=== PATIENT | female | born 1990 | race Caucasian/White ===

== ENCOUNTER 2020-09-16 08:25 | Emergency (ER) | payer BC, SELFPAY ==
[2020-09-16 08:49] LABS: Urine Blood Negative (Negative); Urine Glucose Negative (Negative); Urine Protein Negative (Negative); Urine Specific Gravity 1.025 (1.005-1.030); Urine pH 7.5 (5.0-7.0)
[2020-09-16 09:12] LABS: Urine Amorphous Sediment 2+ /HPF (NONE SEEN); Urine Bacteria <20 /HPF (<20); Urine RBC <5 /HPF (NONE SEEN)
[2020-09-16 09:13] LABS: Urine Specific Gravity/Preg 1.025 (1.005-1.030)
[2020-09-16 09:23] LABS: Absolute Lymphocytes (CBC) 1.6 K/uL (0.7-4.9); Basophils % 0.7 % (0-1.3); Hematocrit 43.2 % (36.0-45.0); Lymphocytes % 20.9 % (15.3-44.8); MPV 7.8 fL (7.6-11.3)
[2020-09-16] MEDS ORDERED: MORPHINE 4 MG/ML SYR ONE (09:33)
[2020-09-16] MEDS ORDERED: ONDANSETRON 4 MG/2 ML VIAL ONE (09:33)
[2020-09-16 09:35] LABS: Albumin 3.9 g/dL (3.4-5.0); Bilirubin Direct 0.1 mg/dL (0-0.2); Bilirubin Total 0.4 mg/dL (0.2-1.0); Potassium 3.7 mmol/L (3.5-5.1); Protein, Total 7.7 g/dL (6.4-8.2)
--- NOTE | 2020-09-16 09:55 | RAD REPORT ---
EXAM DESCRIPTION: CTAbdomen Pelvis W Contrast - 09/16/2020 9:48 am CLINICAL HISTORY: Abdominal pain. periumbilical and RLQ abd pain COMPARISON: No comparisons TECHNIQUE: Biphasic CT imaging of the abdomen and pelvis was performed with 100 ml non-ionic IV cont rast. All CT scans are performed using dose optimization technique as appropriate and may include automated exposure control or mA/KV adjustment according to patient size. FINDINGS: The lung bases are clear.Small hiatal hernia. The liver, spleen, pancreas, adrenal glands and kidneys are within normal limits. No bowel obstruction, free air, free fluid or abscess. The appendix is normal. No evidence of signi ficant lymphadenopathy. No suspicious bony findings. IMPRESSION: No acute intra-abdominal or pelvic finding.
--- NOTE | 2020-09-16 10:17 | EDPHYS ---
Physician Documentation [facility] Name: Lissett Gimenez Age: 30 yrs Sex: Female : 1990 Arrival Date: 09/16/2020 Time: 08:27 Bed 8 Private MD: ED Physician Humble Carpio HPI: 09/16 09:12 This 30 yrs old Female presents to ER via Ambulatory with complaints of rn Abdominal Pain. 09:12 The patient presents with abdominal pain in the periumbilical area. right lower rn quadrant. Onset: The symptoms/episode began/occurred last night. The symptoms do not radiate. Associated signs and symptoms: Pertinent positives: nausea, Pertinent negatives: blood in stools, constipation, diarrhea, dysuria, fever. The symptoms are described as achy, crampy. Modifying factors: The symptoms are alleviated by nothing, the symptoms are aggravated by touching the area. Severity of pain: At its worst the pain was moderate in the emergency department the pain is unchanged. The patient has not experienced similar symptoms in the past. The patient has not recently seen a physician. No improvement with Gasx.. 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 - Social history:: Smoking status: Reported history of juuling and/or vaping. - Family history:: not pertinent. - Hospitalizations: : No recent hospitalization is reported. ROS: 09:12 Constitutional: Negative for fever, chills, and weight loss, Eyes: Negative for injury, rn pain, redness, and discharge, Neck: Negative for injury, pain, and swelling, Cardiovascular: Negative for chest pain, palpitations, and edema, Respiratory: Negative for shortness of breath, cough, wheezing, and pleuritic chest pain, Abdomen/GI: Negative for vomiting, diarrhea, and constipation, Back: Negative for injury and pain, : Negative for injury, bleeding, discharge, and swelling, MS/Extremity: Negative for injury and deformity, Skin: Negative for injury, rash, and discoloration, Neuro: Negative for headache, weakness, numbness, tingling, and seizure. Exam: 09:12 Constitutional: This is a well developed, well nourished patient who is awake, alert, rn and in no acute distress. Ambulatory to room without difficulty or assistance. Head/Face: Normocephalic, atraumatic. Eyes: Periorbital areas with no swelling, redness, or edema. Cardiovascular: Regular rate and rhythm. No pulse deficits. Respiratory: No increased work of breathing, no retractions or nasal flaring. Abdomen/GI: soft, + mild periumbilical and RLQ tenderness, no masses Skin: Warm, dry MS/ Extremity: Pulses equal, no cyanosis. Neuro: Awake and alert, GCS 15 Vital Signs: 08:28 BP 141 / 89; Pulse 89; Resp 17; Temp 97.9; Pulse Ox 98% ; Weight 113.4 kg; Height 5 ft. rb3 6 in. (167.64 cm); Pain 9/10; 09:25 BP 134 / 85; Pulse 81; Resp 17; Pulse Ox 98% ; rb3 10:24 BP 121 / 78; Pulse 72; Resp 16; Pulse Ox 98% ; rb3 08:28 Body Mass Index 40.35 (113.40 kg, 167.64 cm) rb3 MDM: 08:30 Patient medically screened. rn 10:15 Differential diagnosis: appendicitis, diverticulitis, Endometriosis, non-specific abd rn pain, Ureterolithiasis, urinary tract infection, ovarian cyst. Data reviewed: vital signs, nurses notes, lab test result(s), radiologic studies, CT scan, and as a result, I will discharge patient. Counseling: I had a detailed discussion with the patient and/or guardian regarding: the historical points, exam findings, and any diagnostic results supporting the discharge/admit diagnosis, lab results, radiology results, the need for outpatient follow up, to return to the emergency department if symptoms worsen or persist or if there are any questions or concerns that arise at home. Response to treatment: the patient's symptoms have mildly improved after treatment, and as a result, I will discharge patient. Special discussion: I discussed with the patient/guardian in detail that at this point there is no indication for admission to the hospital. It is understood, however, that if the symptoms persist or worsen the patient needs to return immediately for re-evaluation. ED course: No acute findings in blood/urine/ct abdomen, neg preg, will dc home with rehydration, laxative, gasx, and return precautions.. 09/16 08:36 Order name: Basic Metabolic Panel rn 09/16 08:36 Order name: CBC with Diff rn 09/16 08:36 Order name: Hepatic Function; Complete Time: 10:09 rn 09/16 08:36 Order name: Lipase; Complete Time: 10:09 rn 09/16 08:36 Order name: Urine Microscopic Only; Complete Time: 10: rn 09/16 08:37 Order name: Basic Metabolic Panel; Complete Time: 10:09 EDNY 09/16 08:36 Order name: IV Saline Lock; Complete Time: 09:42 rn 09/16 08:36 Order name: Labs collected and sent; Complete Time: 09:42 rn 09/16 08:36 Order name: CT Abd/Pelvis - IV Contrast Only; Complete Time: 10: rn 09/16 08:37 Order name: CBC with Automated Diff; Complete Time: 10: EDNY 09/16 08:49 Order name: Urine Dipstick-Ancillary; Complete Time: 10: EDNY 09/16 08:54 Order name: Urine --Ancillary (enter results); Complete Time: 10:09 09/16 08:36 Order name: Urine Test (obtain specimen); Complete Time: 09:42 rn 09/16 08:36 Order name: Urine Dipstick-Ancillary (obtain specimen); Complete Time: 09:42 rn Administered Medications: 09:20 Drug: morphine 4 mg Route: IVP; Site: right antecubital; rb3 09:35 Follow up: Response: No adverse reaction; Pain is decreased rb3 09:20 Drug: Zofran (Ondansetron) 4 mg Route: IVP; Site: right antecubital; rb3 09:35 Follow up: Response: No adverse reaction rb3 Disposition: 09/16/20 10:16 Discharged to Home. Impression: Lower abdominal pain, unspecified. - Condition is Stable. - Discharge Instructions: Abdominal Pain, Adult, Pain Without a Known Cause. - Medication Reconciliation Form, Thank You Letter, Antibiotic Education, Prescription Opioid Use, Work release form form. - Follow up: Private Physician; When: As needed; Reason: Recheck today's complaints, Re-evaluation by your physician. - Problem is new. - Symptoms have improved. Signatures: Dispatcher [employer] EDMS Humble Carpio MD MD rn Barber, Rebecca, RN RN rb3 Corrections: (The following items were deleted from the chart) 10:46 10:16 09/16/2020 10:16 Discharged to Home. Impression: Lower abdominal pain, rb3 unspecified. Condition is Stable. Forms are Medication Reconciliation Form, Thank You Letter, Antibiotic Education, Prescription Opioid Use. Follow up: Private Physician; When: As needed; Reason: Recheck today's complaints, Re-evaluation by your physician. Problem is new. Symptoms have improved. rn
--- NOTE | 2020-09-16 10:17 | ER ---
Nurse's Notes [facility] Name: Lissett Gimenez Age: 30 yrs Sex: Female : 1990 Arrival Date: 09/16/2020 Time: 08:27 Bed 8 Private MD: Diagnosis: Lower abdominal pain, unspecified Presentation: 09/16 08:28 Chief complaint: Patient states: RLQ pain that radiates across the lower abdomen, pain rb3 started last night. 08:28 Coronavirus screen: At this time, the client does not indicate any symptoms associated rb3 with coronavirus-19. Ebola Screen: Patient denies travel to an Ebola-affected area in the 21 days before illness onset. Initial Sepsis Screen: Does the patient meet any 2 criteria? No. Patient's initial sepsis screen is negative. Does the patient have a suspected source of infection? No. Patient's initial sepsis screen is negative. Risk Assessment: Do you want to hurt yourself or someone else? Patient reports no desire to harm self or others. Onset of symptoms was September 15, 2020. 08:28 Method Of Arrival: Ambulatory rb3 08:28 Acuity: MARIFER 3 rb3 Triage Assessment: 08:28 General: Appears uncomfortable, Behavior is calm, cooperative, Denies fever. Pain: rb3 Complains of pain in right lower quadrant Pain radiates to lower abdomen Pain currently is 9 out of 10 on a pain scale. Neuro: Level of Consciousness is awake, alert, obeys commands, Oriented to person, place, time, situation. Cardiovascular: Capillary refill < 3 seconds Patient's skin is warm and dry. Respiratory: Airway is patent Respiratory effort is even, unlabored, Respiratory pattern is regular, symmetrical. GI: Reports nausea. : No signs and/or symptoms were reported regarding the genitourinary system. 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 - Social history:: Smoking status: Reported history of juuling and/or vaping. - Family history:: not pertinent. - Hospitalizations: : No recent hospitalization is reported. Screenin:28 Abuse screen: Denies threats or abuse. Nutritional screening: No deficits noted. rb3 Tuberculosis screening: No symptoms or risk factors identified. Fall Risk None identified. Assessment: 08:28 General: See triage assessment. rb3 09:30 Reassessment: Patient appears in no apparent distress at this time. Patient and/or rb3 family updated on plan of care and expected duration. Pain level reassessed. Patient is alert, oriented x 3, equal unlabored respirations, skin warm/dry/pink. 10:30 Reassessment: Patient appears in no apparent distress at this time. Patient states rb3 feeling better. Vital Signs: 08:28 BP 141 / 89; Pulse 89; Resp 17; Temp 97.9; Pulse Ox 98% ; Weight 113.4 kg; Height 5 ft. rb3 6 in. (167.64 cm); Pain 9/10; 09:25 BP 134 / 85; Pulse 81; Resp 17; Pulse Ox 98% ; rb3 10:24 BP 121 / 78; Pulse 72; Resp 16; Pulse Ox 98% ; rb3 08:28 Body Mass Index 40.35 (113.40 kg, 167.64 cm) rb3 ED Course: 08:27 Patient arrived in ED. as 08:28 Arm band placed on. rb3 08:28 Patient has correct armband on for positive identification. Bed in low position. Call rb3 light in reach. Side rails up X 1. Pulse ox on. NIBP on. Warm blanket given. 08:30 Humble Carpio MD is Attending Physician. rn 08:38 Bonnie Villarreal, GABY is Primary Nurse. rb3 08:40 Triage completed. rb3 09:47 CT Abd/Pelvis - IV Contrast Only In Process Unspecified. EDMS 10:45 No provider procedures requiring assistance completed. IV discontinued, intact, rb3 bleeding controlled, No redness/swelling at site. Pressure dressing applied. Administered Medications: 09:20 Drug: morphine 4 mg Route: IVP; Site: right antecubital; rb3 09:35 Follow up: Response: No adverse reaction; Pain is decreased rb3 09:20 Drug: Zofran (Ondansetron) 4 mg Route: IVP; Site: right antecubital; rb3 09:35 Follow up: Response: No adverse reaction rb3 Outcome: 10:16 Discharge ordered by . rn 10:45 Discharged to home ambulatory, with significant other. rb3 10:45 Condition: stable 10:45 Discharge instructions given to patient, Instructed on discharge instructions, follow up and referral plans. Demonstrated understanding of instructions, follow-up care, Prescriptions given X none 10:46 Patient left the ED. rb3 Signatures: Dispatcher [employer] EDAmber Mota Roman, MD MD rn Barber, Rebecca, RN RN rb3
[2020-09-16 10:51] VITALS: BP 141/89; TEMP 97.9; O2SAT 98
== END 2020-09-16 10:46 | disposition home or self-care (01) ==
LOC: ER 08:25
DX: R10.31 Right lower quadrant pain (principal); Z88.5 Allergy status to narcotic agent
CPT/HCPCS: 36415; 74177; 80048; 80076; 81003; 81015; 81025; 83690; 85025; 96374; 96375; 99284; J2405; Q9967